=== PATIENT | female | born 1955 | race Caucasian/White ===

== ENCOUNTER 2017-10-02 19:01 | Emergency (ER) | payer MEDICARE, BC ==
[2017-10-02 20:13] VITALS: PULSE 84
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
[2017-10-02 20:44] LABS: Appearance CLEAR (CLEAR); Bilirubin NEGATIVE (NEGATIVE); Blood TRACE NON-HEM Ery/ul (0-5); Glucose NEGATIVE (NEGATIVE); Ketones NEGATIVE (NEGATIVE); Leukocyte Esterase NEGATIVE (NEGATIVE); Nitrite NEGATIVE (NEGATIVE); Protein,Urine Dip NEGATIVE (Negative); Specific Gravity 1.005 (1.005-1.025); Urobilinogen NORMAL mg/dL (0-1)
[2017-10-02 20:45] LABS: Bacteria RARE /HPF (NEGATIVE)
[2017-10-02] MEDS ORDERED: Macrobid 100MG Capsule PO ONE (20:57)
[2017-10-02] MEDS ORDERED: Macrobid 100MG Capsule ONE (21:04)
[2017-10-02 21:15] VITALS: BP 139/90; O2SAT 97
== END 2017-10-02 21:15 | disposition home or self-care (01) ==
LOC: ED 19:01
DX: R30.0 Dysuria (principal); R35.8 Other polyuria; R10.9 Unspecified abdominal pain; Z79.899 Other long term (current) drug therapy; E11.9 Type 2 diabetes mellitus without complications
CPT/HCPCS: 81000; 81002; 99283; A9270-GY

== ENCOUNTER 2019-03-07 08:09 | Day surgery (SDC) | payer MEDICARE, BC ==
[~2019-03-07 08:09] MED LIST: DIPRIVAN 200 MG/20 ML IV ONE
[2019-03-07] MEDS ORDERED: Ketamine HCl 50 MG/ML ONE (08:14)
[2019-03-07] MEDS ORDERED: Lactated Ringers 1,000 ML IV SCH (08:30)
[2019-03-07] MEDS ORDERED: Lactated Ringers 1,000 ML IV ONE (08:34)
--- NOTE | 2019-03-07 08:34 | HP ---
DATE OF SURGERY: 03/07/2019 HISTORY OF PRESENT ILLNESS: The patient is a 64 year-old with some chest pain. 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 She has been on some Nexium. She is in need of upper endoscopy to evaluate for gastritis, peptic ulcer disease, esophagitis or other etiology. PAST MEDICAL HISTORY: Diabetes, hyperlipidemia, hypertension. She has asthma, reflux, history of some back pain in the past. PAST SURGICAL HISTORY: Appendectomy, tonsillectomy, colonoscopy, cholecystectomy, hysterectomy, cystocele and rectocele repair in the past. MEDICATIONS: Albuterol, azelastine, diltiazem, Enalapril, omeprazole, fish oil, hydrochlorothiazide, levocetirizine, magnesium oxide, Metformin, nitroglycerin PRN, rosuvastatin, Symbicort, vitamin D3. ALLERGIES: BACTRIM. CODEINE. IODINE CAUSES HIVES. FAMILY HISTORY: CVA, myocardial infarction, chronic renal failure. History of pulmonary embolus in the past in the father. SOCIAL HISTORY: No smoking. No alcohol abuse. REVIEW OF SYSTEMS: Fourteen systems reviewed per admission assessment. No shortness of breath. No palpitation. She did have chest pain. It was felt not to be cardiac in origin as well as odynophagia and reflux. No other shortness of breath or palpitations. Other systems negative or noncontributory as above and per preadmission questionnaire. PHYSICAL EXAMINATION: GENERAL: No acute distress. HEENT: Sclerae nonicteric. NECK: No JVD. CHEST: Equal excursion, nonlabored breathing. CVS: Regular rate and rhythm. ABDOMEN: Soft. No peritoneal signs. EXTREMITIES: No significant edema. NEURO: Alert, oriented, moving extremities symmetrically. No gross motor deficits noted. IMPRESSION: Odynophagia, reflux unclear etiology, is in need of upper endoscopy to evaluate for gastritis, peptic ulcer disease, esophagitis or other etiology. Risks and benefits explained in detail including but not limited to bleeding or infection, risk of bowel injury or perforation possibly requiring open procedure, risk of missed or nondiagnosis or incomplete exam possibly requiring barium swallow, other studies or procedures. General risk of anesthesia or sedation. Risk of bleeding or infection, risk of sedation but not limited to, risk of inability to diagnose the etiology of her symptoms possibly requiring other work up or studies. She understands and agrees to the planned procedure and will proceed with outpatient EGD with possible biopsy.
[2019-03-07 11:32] VITALS: BP 152/81; PULSE 73; O2SAT 100
--- NOTE | 2019-03-07 15:30 | OP ---
SURGERY DATE/TIME: 03/07/2019 1032 PREOPERATIVE DIAGNOSES: 1) Odynophagia. 2) Epigastric pain, need for upper endoscopy. POSTOPERATIVE DIAGNOSES: 1) Mild gastritis. 2) Small gastric polyp. 3) Question gastroparesis. PROCEDURES: 1) EGD with cold biopsy of small bowel to evaluate for celiac sprue. 2) Cold biopsy of the antrum to evaluate for Helicobacter pylori. 3) Cold biopsy esophagus to evaluate for eosinophilic esophagitis. 4) Cold biopsy removal of small benign appearing gastric polyp in the fundus. SURGEON: Dr. Kiran Vale. ANESTHESIA: MAC. ESTIMATED BLOOD LOSS: Minimal. INDICATIONS: As noted above. Risks and benefits explained in detail and not limited to and consent obtained. DESCRIPTION OF PROCEDURE AND FINDINGS: The patient is taken to the operating room. MAC anesthesia introduced. After official time out and no disagreement with planned procedure, a bite block positioned. Video gastroscope easily passed down the esophagus through the patent pylorus to the junction of the second and third portion of the duodenum. Given her symptom complaints, cold biopsy taken of small bowel to evaluate for celiac sprue. Cold biopsy taken. She had some minimal to mild gastritis. Cold biopsy taken in the antrum to evaluate for Helicobacter pylori. On retroflex there were no signs of any large hiatal hernia. The gastroesophageal junction fairly snug against the scope. There was a small fundal polyp that was removed with cold biopsy forceps. Good hemostasis noted. Scope pulled back up through the esophagus, gastroesophageal junction appeared to be fairly crisp. No sign of Luna's or erosions and some random cold biopsies taken of the esophagus to evaluate for eosinophilic esophagitis. Gastroesophageal junction was around 40 cm. There were no signs of any obvious masses or other mucosal lesions on withdrawal of the scope. The patient tolerated the procedure well. There were no immediate complications. It should be noted she did have moderate amount of food particles in the stomach, question some gastroparesis. The patient tolerated the procedure well. There were no immediate complications. Findings discussed with the family out in the waiting area.
== END 2019-03-07 11:46 | disposition home or self-care (01) ==
LOC: SDC 08:09
PROVIDERS: ATTEND Surgery
DX: R13.10 Dysphagia, unspecified (principal); R10.13 Epigastric pain; K29.70 Gastritis, unspecified, without bleeding; K31.7 Polyp of stomach and duodenum; E11.9 Type 2 diabetes mellitus without complications; E78.5 Hyperlipidemia, unspecified; I10 Essential (primary) hypertension; Z79.899 Other long term (current) drug therapy
CPT/HCPCS: 82962; 88305; J2704

== ENCOUNTER 2022-01-04 17:01 | Observation (INO) | payer MEDICARE, BC ==
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
[2022-01-04] MEDS ORDERED: Zofran 4 MG/2 ML VIAL IV ONE (19:33)
[2022-01-04] MEDS ORDERED: Pepcid 20 MG VIAL IV ONE ×2 (19:33→20:50)
[2022-01-04] MEDS ORDERED: GlucaGen 1 MG IM ONE (19:35)
[2022-01-04 19:51] LABS: Absolute Neutrophil Ct (ANC) 6.09 (1.4-6.9); Basophil (Absolute #) 0.04 (0-0.4); Eosinophil % 0.9 % (0.00-5.0); Eosinophil (Absolute #) 0.09 (0-0.5); Hematocrit 44.3 % (35-47); Hemoglobin 14.5 gm/dl (12.0-16.0); Lymphocyte (Absolute #) 2.88 (1.0-4.6); Lymphocytes % 29.6 % (24.0-44.0); Mean Cell Volume 93.1 fl (78-100); Mean Corpuscular Hemoglobin 30.5 pg (26-32); Mean Corpuscular Hgb Concent. 32.7 g/dl (32-36); Mean Platelet Volume 9.3 fl (7.5-11.0); Monocyte (Absolute #) 0.62 (0.0-1.3); Monocytes % 6.4 % (0.0-12.0); Neutrophil % 62.7 % (36.0-66.0); Platelet Count 305 K/mm3 (150-450); Red Blood Count 4.76 M/mm3 (4.1-5.4); White Blood Count 9.7 K/mm3 (4.0-10.5)
[2022-01-04 20:10] LABS: ALBUMIN 4.7 g/dL (3.5-5.0); ALKALINE PHOSPHATASE 69 U/L (38-126); AMYLASE 65 U/L (30-110); ANION GAP 14.1 MEQ/L (5-15); BLOOD UREA NITROGEN 17 mg/dL (7-17); CHLORIDE 104 mmol/L (98-107); Calcium 10.5 mg/dL (8.4-10.2); Carbon Dioxide 27 mmol/L (22-30); Creatinine 1 0.66 mg/dL (0.52-1.04); EST GLOMERULAR FILTRATION RATE > 60.0 ML/MIN; Glucose 101 mg/dL (74-106); LIPASE 60 U/L (23-300); Potassium 4.2 mmol/L (3.5-5.1); SGOT/AST 40 U/L (14-36); SGPT/ALT 30 U/L (0-35); SODIUM 141 mmol/L (137-145); Total Protein 7.8 g/dL (6.3-8.2)
[2022-01-04] MEDS ORDERED: Zofran 4 MG/2 ML VIAL ONE (20:50)
[2022-01-04] MEDS ORDERED: GlucaGen 1 MG ONE (20:51)
[2022-01-04 20:53] LABS: Epithelial Cells RARE /HPF (FEW); Mucus SLIGHT /HPF (NEGATIVE); WBC 0-2 /HPF (0-5)
[2022-01-04] MEDS: Sodium Chloride 0.9% 1000 ML 1,000 ML IV SCH (20:53)
[2022-01-04 20:56] LABS: Appearance CLEAR (CLEAR); Bilirubin NEGATIVE (NEGATIVE); Glucose NEGATIVE (NEGATIVE); Ketones SMALL-15 (NEGATIVE); Nitrite NEGATIVE (NEGATIVE); Ph 5.5 (5-6); Protein,Urine Dip 100 (Negative); RBC SMALL Ery/ul (0-5); Specific Gravity >=1.030 (1.005-1.025); Urine Cultured Indicated? YES; Urobilinogen 0.2 mg/dL (0-1)
[2022-01-04 21:10] LABS: Dipstick done @ ? MAIN LAB
[2022-01-05] MEDS ORDERED: Zofran 4 MG/2 ML VIAL IV PRN (00:17)
[2022-01-05] MEDS ORDERED: MAALOX ES 30 ML UNIT DOSE PO PRN (00:17)
[2022-01-05] MEDS ORDERED: Hydromorphone 1 mg/ml Injection IV PRN (00:17)
[2022-01-05] MEDS ORDERED: HUMULIN R SQ PRN (00:17)
[2022-01-05] MEDS: Sodium Chloride 0.9% 1000 ML 1,000 ML IV SCH ×2 (00:51→10:43)
[2022-01-05 06:27] LABS: Basophil (Absolute #) 0.03 (0-0.4); Eosinophil % 1.2 % (0.00-5.0); Hematocrit 42.7 % (35-47); Hemoglobin 13.8 gm/dl (12.0-16.0); Lymphocyte (Absolute #) 2.47 (1.0-4.6); Lymphocytes % 30.4 % (24.0-44.0); Mean Cell Volume 93.6 fl (78-100); Mean Corpuscular Hemoglobin 30.3 pg (26-32); Mean Corpuscular Hgb Concent. 32.3 g/dl (32-36); Mean Platelet Volume 9.6 fl (7.5-11.0); Monocyte (Absolute #) 0.52 (0.0-1.3); Monocytes % 6.4 % (0.0-12.0); Neutrophil % 61.6 % (36.0-66.0); Platelet Count 310 K/mm3 (150-450); Red Blood Count 4.56 M/mm3 (4.1-5.4); White Blood Count 8.1 K/mm3 (4.0-10.5)
[2022-01-05 06:39] LABS: ALKALINE PHOSPHATASE 61 U/L (38-126); ANION GAP 14.4 MEQ/L (5-15); BLOOD UREA NITROGEN 13 mg/dL (7-17); CHLORIDE 107 mmol/L (98-107); Calcium 9.2 mg/dL (8.4-10.2); Carbon Dioxide 23 mmol/L (22-30); Creatinine 1 0.52 mg/dL (0.52-1.04); EST GLOMERULAR FILTRATION RATE > 60.0 ML/MIN; Glucose 83 mg/dL (74-106); Potassium 4.4 mmol/L (3.5-5.1); SGOT/AST 32 U/L (14-36); SGPT/ALT 27 U/L (0-35); SODIUM 140 mmol/L (137-145); Total Protein 6.3 g/dL (6.3-8.2)
[2022-01-05] MEDS ORDERED: TYLENOL 325 MG PO PRN (06:48)
[2022-01-05] MEDS ORDERED: PATIENT OWN MEDICATION IH SCH (07:00)
--- NOTE | 2022-01-05 07:28 | XRAY ---
Indication: "Trouble swallowing. Epigastric pain and burning." Multiple contiguous axial images obtained through the chest without contrast. Comparison: None Heart not enlarged. Aorta normal in course and caliber. Small mediastinal and tiny right hilar calcified nodes. No pathologic mediastinal lymphadenopathy. Small hiatal hernia. Lungs demonstrates minimal bibasilar fibrosis/scarring. No suspicious pulmonary mass, infiltrate, effusion, or pneumothorax. Bony thorax intact with minimal degenerative changes throughout the spine. Limited upper abdomen demonstrates tiny hepatic/splenic calcified granulomas and cholecystectomy clips. Impression: Small hiatal hernia and old granulomatous disease. No acute cardiopulmonary abnormalities. Comment: Preliminary interpretation made by [facility]. No critical discrepancy.
[2022-01-05] MEDS ORDERED: PROTONIX 40 MG IV IV SCH (10:00)
[2022-01-05] MEDS ORDERED: Pepcid 20 MG VIAL IV SCH (10:00)
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
[2022-01-05] MEDS ORDERED: Ventolin Hfa MDI IH PRN (11:34)
[2022-01-05] MEDS ORDERED: VENTOLIN COMMON CANISTER IH PRN (11:36)
[2022-01-05 12:10] VITALS: BP 148/70; PULSE 82; O2SAT 94
--- NOTE | 2022-01-05 14:48 | PCM.DS ---
Discharge Summary Date of Admission: 01/05/22 00:10 Admitting Physician: NISHANT MABRY Primary Care Provider: GREG CHRISTINA Allergies Allergies iodine Allergy (Verified 01/04/22 17:56) Hives sulfamethoxazole [From Bactrim] Allergy (Verified 01/04/22 17:56) Rash trimethoprim [From Bactrim] Allergy (Verified 01/04/22 17:56) Rash Hospital Summary - Hospital Course Hospital Course: Chief Complaint Diagnosis inability to take fluids; esophagitis; Allergies Allergy/AdvReac Type Severity Reaction Status Date / Time iodine Allergy Hives Verified 01/04/22 17:56 sulfamethoxazole Allergy Rash Verified 01/04/22 17:56 [From Bactrim] trimethoprim [From Bactrim] Allergy Rash Verified 01/04/22 17:56 Vital Signs (Last 24 hours) Temp Pulse Resp BP Pulse Ox 01/05/22 12:00 98.3 F 82 16 148/70 94 L 01/05/22 07:41 98.6 F 89 16 154/86 98 01/05/22 07:40 84 16 95 01/05/22 04:00 98.7 F 81 16 132/66 96 01/05/22 01:12 74 16 96 01/05/22 01:04 98.4 F 75 16 141/67 98 01/04/22 23:00 79 171/94 96 01/04/22 22:27 64 18 73/44 98 01/04/22 22:08 96 01/04/22 21:08 88 18 168/80 98 01/04/22 19:05 96 H 18 178/96 96 01/04/22 18:04 90 18 153/88 95 01/04/22 17:45 97 F 93 H 18 170/97 96 Home Medications Medication Instructions Recorded Confirmed Last Taken Type Aspirin 81 mg PO HS 01/05/22 01/04/22 Unknown History Famotidine 20 mg [Pepcid 20 20 mg PO BID #60 tablet 01/05/22 Unknown Rx MG] PANTOPRAZOLE 40 mg Tablet 40 mg PO QAM 30 Days #30 tab 01/05/22 Unknown Rx [Protonix 40MG Tablet] Rosuvastatin Calcium 20 mg PO HS 01/05/22 01/05/22 Unknown History Current Medications Generic Name Dose Route Start Last Admin Trade Name Freq PRN Reason Stop Dose Admin Acetaminophen 650 mg 01/05/22 06:48 01/05/22 06:51 Acetaminophen 325 Mg Tablet PO 02/04/22 06:47 650 mg Q6H PRN PRN Administration PAIN AND/OR FEVER Al Hydrox/Mg Hydrox/Simethicone 30 ml 01/05/22 00:17 Mag Hydrox/Al Hydrox/Simeth 30 Ml Udcup PO 02/04/22 00:16 Q2H PRN PRN INDIGESTION Albuterol Sulfate 2 puff 01/05/22 11:36 Albuterol Common Canister Inhaler IH 02/04/22 11:35 Q6H PRN PRN SHORTNESS OF BREATH Aspirin 81 mg 01/05/22 22:00 Aspirin 81 Mg Tablet.Ec PO 02/04/22 21:59 HS [facility] Diltiazem HCl 120 mg 01/05/22 20:00 Diltiazem Hcl 120 Mg Cap.Sr.24h PO 02/04/22 19:59 DAILY@2000 [facility] Enalapril Maleate 20 mg 01/06/22 10:00 Enalapril Maleate 10 Mg 10 Mg Tablet PO 02/05/22 09:59 DAILY [facility] Famotidine 20 mg 01/05/22 10:00 01/05/22 09:11 Famotidine 20 Mg/1 Vial IV 02/04/22 09:59 20 mg Q12HT MAEGAN Administration Hydromorphone HCl 1 mg 01/05/22 00:17 Hydromorphone 1 Mg/1ml Inj 1 Mg/Ml Syringe IV 01/10/22 00:16 Q4H PRN PRN PAIN Sodium Chloride 1,000 mls @ 100 mls/hr 01/04/22 19:45 01/05/22 10:43 Sodium Chloride 0.9% 1000 Ml IV 02/03/22 19:44 100 mls/hr .Q10H MAEGAN Administration Insulin Human Regular 0 unit 01/05/22 00:17 Insulin Regular, Human 1 Unit SQ 02/04/22 00:16 UD PRN HYPERGLYCEMIA Magnesium Oxide 400 mg 01/05/22 22:00 Magnesium Oxide 400 Mg Tablet PO 02/04/22 21:59 HS [facility] Metformin HCl 500 mg 01/05/22 17:00 Metformin Hcl 500 Mg Tablet PO 02/04/22 16:59 BIDWM [facility] Ondansetron HCl 4 mg 01/05/22 00:17 Ondansetron Hcl 4 Mg/2 Ml Vial IV 02/04/22 00:16 Q6H PRN PRN NAUSEA/VOMITING Pantoprazole Sodium 40 mg 01/05/22 10:00 01/05/22 09:11 Pantoprazole 40 Mg Vial IV 02/04/22 09:59 40 mg Q24H10 [facility]EGAN Administration Patient Own Med : 1 each 01/05/22 07:00 01/05/22 07:40 Symbicort 160/4.5 IH 02/04/22 06:59 1 each BIDRT MAEGAN Administration Simvastatin 40 mg 01/05/22 22:00 Simvastatin 20 Mg Tablet PO 02/04/22 21:59 HS [facility] Discontinued Medications Generic Name Dose Route Start Last Admin Trade Name Freq PRN Reason Stop Dose Admin Famotidine 20 mg 01/04/22 19:33 01/04/22 20:52 Famotidine 20 Mg/1 Vial IV 01/04/22 19:34 20 mg STAT ONE Administration Famotidine Confirm 01/04/22 20:50 Famotidine 20 Mg/1 Vial Administered 01/04/22 20:51 Dose 20 mg IV .STK-MED ONE Glucagon 1 mg 01/04/22 19:35 01/04/22 20:52 Glucagon 1 Mg/Vial Vial IM 01/04/22 19:36 1 mg STAT ONE Administration Glucagon Confirm 01/04/22 20:51 Glucagon 1 Mg/Vial Vial Administered 01/04/22 20:52 Dose 1 mg .ROUTE .STK-MED ONE Ondansetron HCl 4 mg 01/04/22 19:33 01/04/22 20:53 Ondansetron Hcl 4 Mg/2 Ml Vial IV 01/04/22 19:34 4 mg STAT ONE Administration Ondansetron HCl Confirm 01/04/22 20:50 Ondansetron Hcl 4 Mg/2 Ml Vial Administered 01/04/22 20:51 Dose 4 mg .ROUTE .STK-MED ONE Intake & Output (Last 24 hours) 01/03/22 01/04/22 01/05/22 01/06/22 11:59 11:59 11:59 11:59 Intake Total 240 Balance 240 Weight 95.3 kg Microbiology Results (Last 24 hours) 01/04/22 Unknown Clean Catch Midstream Urine Culture - Pending Laboratory Results (Last 24 hours) 01/05/22 01/05/22 01/05/22 06:04 06:00 06:00 WBC 8.1 RBC 4.56 Hgb 13.8 Hct 42.7 MCV 93.6 MCH 30.3 MCHC 32.3 RDW 15.0 H Plt Count 310 MPV 9.6 Gran % 61.6 Eos # (Auto) 0.10 Absolute Lymphs (auto) 2.47 Absolute Monos (auto) 0.52 Lymphocytes % 30.4 Monocytes % 6.4 Eosinophils % 1.2 Basophils % 0.4 Absolute Granulocytes 5.00 Basophils # 0.03 Sodium 140 Potassium 4.4 Chloride 107 Carbon Dioxide 23 Anion Gap 14.4 BUN 13 Creatinine 0.52 Estimated GFR > 60.0 Glucose 83 Lactic Acid 0.5 Calcium 9.2 Total Bilirubin 0.60 AST 32 ALT 27 Alkaline Phosphatase 61 Troponin I Serum Total Protein 6.3 Albumin 4.0 Amylase Lipase Urinalys Dipstick Clnc Urine Color Urine Appearance Urine pH Ur Specific Gardners POC Urine Protein Conf Urine Ketones Urine Nitrite Urine Bilirubin Urine Urobilinogen Urine Leukocytes Urine WBC (Auto) Urine RBC (Auto) U Hyaline Cast (Auto) U Epithel Cells (Auto) Urine RBC Urine Mucus (Auto) Ur Culture Indicated? Urine Glucose Group A Strep Antibody 01/04/22 01/04/22 01/04/22 Unknown 22:50 20:00 WBC RBC Hgb Hct MCV MCH MCHC RDW Plt Count MPV Gran % Eos # (Auto) Absolute Lymphs (auto) Absolute Monos (auto) Lymphocytes % Monocytes % Eosinophils % Basophils % Absolute Granulocytes Basophils # Sodium Potassium Chloride Carbon Dioxide Anion Gap BUN Creatinine Estimated GFR Glucose Lactic Acid Calcium Total Bilirubin AST ALT Alkaline Phosphatase Troponin I < 0.012 < 0.012 Serum Total Protein Albumin Amylase Lipase Urinalys Dipstick Clnc MAIN LAB Urine Color YELLOW Urine Appearance CLEAR Urine pH 5.5 Ur Specific Gardners >=1.030 POC Urine Protein Conf 100 Urine Ketones SMALL-15 Urine Nitrite NEGATIVE Urine Bilirubin NEGATIVE Urine Urobilinogen 0.2 Urine Leukocytes NEGATIVE Urine WBC (Auto) 0-2 Urine RBC (Auto) 3-5 U Hyaline Cast (Auto) 3-5 U Epithel Cells (Auto) RARE Urine RBC SMALL Urine Mucus (Auto) SLIGHT Ur Culture Indicated? YES Urine Glucose NEGATIVE Group A Strep Antibody 04/01/04/22 01/04/22 19:45 19:45 19:33 WBC 9.7 RBC 4.76 Hgb 14.5 Hct 44.3 MCV 93.1 MCH 30.5 MCHC 32.7 RDW 15.0 H Plt Count 305 MPV 9.3 Gran % 62.7 Eos # (Auto) 0.09 Absolute Lymphs (auto) 2.88 Absolute Monos (auto) 0.62 Lymphocytes % 29.6 Monocytes % 6.4 Eosinophils % 0.9 Basophils % 0.4 Absolute Granulocytes 6.09 Basophils # 0.04 Sodium 141 Potassium 4.2 Chloride 104 Carbon Dioxide 27 Anion Gap 14.1 BUN 17 Creatinine 0.66 Estimated GFR > 60.0 Glucose 101 Lactic Acid 0.6 Calcium 10.5 H Total Bilirubin 0.60 AST 40 H ALT 30 Alkaline Phosphatase 69 Troponin I Serum Total Protein 7.8 Albumin 4.7 Amylase 65 Lipase 60 Urinalys Dipstick Clnc Urine Color Urine Appearance Urine pH Ur Specific Gard[place] POC Urine Protein Conf Urine Ketones Urine Nitrite Urine Bilirubin Urine Urobilinogen Urine Leukocytes Urine WBC (Auto) Urine RBC (Auto) U Hyaline Cast (Auto) U Epithel Cells (Auto) Urine RBC Urine Mucus (Auto) Ur Culture Indicated? Urine Glucose Group A Strep Antibody 01/04/22 18:00 WBC RBC Hgb Hct MCV MCH MCHC RDW Plt Count MPV Gran % Eos # (Auto) Absolute Lymphs (auto) Absolute Monos (auto) Lymphocytes % Monocytes % Eosinophils % Basophils % Absolute Granulocytes Basophils # Sodium Potassium Chloride Carbon Dioxide Anion Gap BUN Creatinine Estimated GFR Glucose Lactic Acid Calcium Total Bilirubin AST ALT Alkaline Phosphatase Troponin I Serum Total Protein Albumin Amylase Lipase Urinalys Dipstick Clnc Urine Color Urine Appearance Urine pH Ur Specific Gardners POC Urine Protein Conf Urine Ketones Urine Nitrite Urine Bilirubin Urine Urobilinogen Urine Leukocytes Urine WBC (Auto) Urine RBC (Auto) U Hyaline Cast (Auto) U Epithel Cells (Auto) Urine RBC Urine Mucus (Auto) Ur Culture Indicated? Urine Glucose Group A Strep Antibody NOT DETECTED Orders (Last 24 hours) Category Date Time Status Up With Assistance ROUTINE Activity 01/05/22 00:17 Active Code Status Order ROUTINE Care 01/05/22 00:17 Active EKG-ER Only STAT Care 01/04/22 19:33 Completed Fall Protocol Q1H Care 01/05/22 00:17 Active IV Care Q6H Care 01/05/22 00:17 Active IV Insertion STAT Care 01/04/22 19:33 Completed Isolation, Initiate & Maintain Q12H Care 01/05/22 00:10 Active POCT Glucose Check ACHS Care 01/05/22 00:[address] in Observation ROUTINE Care 01/05/22 00:17 Active [facility] PersaudWinnie ROUTINE Care 01/05/22 00:17 Active Telemetry q6h Care 01/05/22 00:17 Active Vital Signs Q4H Care 01/05/22 00:17 Active Weight,Daily 0600 Care 01/05/22 00:17 Active Clear Liquid Diet 01/05/22 Breakfast Completed Soft Diet Diet 01/05/22 Lunch Active Discharge Routine Discharge 01/05/22 13:17 Ordered CHEST WITHOUT CONTRAST [CT] Stat Exams 01/04/22 19:34 Completed AMYLASE Stat Lab 01/04/22 19:45 Completed CBC W DIFF AM.LAB Lab 01/05/22 06:00 Completed CBC W DIFF Stat Lab 01/04/22 19:45 Completed CMP AM.LAB Lab 01/05/22 06:00 Completed CMP Stat Lab 01/04/22 19:45 Completed LIPASE Stat Lab 01/04/22 19:45 Completed Lactic Acid AM.LAB Lab 01/05/22 06:04 Completed Lactic Acid Stat Lab 01/04/22 19:33 Completed Strep Swab [Group A Strep] Stat Lab 01/04/22 18:00 Completed TROPONIN Q3H Lab 01/04/22 20:00 Completed TROPONIN Q3H Lab 01/04/22 22:50 Completed Acetaminophen 325 mg [Tylenol 325 mg] Med 01/05/22 06:48 Active 650 mg PO Q6H PRN PRN Albuterol Common Canister [Ventolin Common Canister* Med 01/05/22 11:36 Active ] 2 puff IH Q6H PRN PRN Aspirin EC 81 mg [Ecotrin 81 mg] Med 01/05/22 22:00 Active 81 mg PO HS Diltiazem HCl 120 mg [Cardizem CD 120 MG] Med 01/05/22 20:00 Active 120 mg PO DAILY@2000 Enalapril Maleate 10 mg [Vasotec 10 MG] Med 01/06/22 10:00 Active 20 mg PO DAILY Famotidine 20 mg Vial [Pepcid 20 MG VIAL] Med 01/04/22 20:50 Discontinued 20 mg IV .STK-MED ONE Famotidine 20 mg Vial [Pepcid 20 MG VIAL] Med 01/05/22 10:00 Active 20 mg IV Q12HT Famotidine 20 mg Vial [Pepcid 20 MG VIAL] Med 01/04/22 19:33 Discontinued 20 mg IV STAT ONE Glucagon 1 mg [GlucaGen 1 MG] Med 01/04/22 20:51 Discontinued 1 mg .ROUTE .STK-MED ONE Glucagon 1 mg [GlucaGen 1 MG] Med 01/04/22 19:35 Discontinued 1 mg IM STAT ONE Hydromorphone 1 mg/1Ml Inj [Hydromorphone 1 mg/ml Med 01/05/22 00:17 Active Injection] 1 mg IV Q4H PRN PRN Insulin Regular, Human [Humulin R] Med 01/05/22 00:17 Active See Dose Instructions SQ UD PRN Mag Hydrox/Al Hydrox/Simeth [Maalox Es 30 ml Unit Med 01/05/22 00:17 Active Dose] 30 ml PO Q2H PRN PRN Magnesium Oxide 400 mg [Mag-Ox 400] Med 01/05/22 22:00 Active 400 mg PO HS Metformin HCl 500 mg [Glucophage 500 MG] Med 01/05/22 17:00 Active 500 mg PO BIDWM NaCl 0.9% 1000 ml [Sodium Chloride 0.9% 1000 ML] 1,000 Med 01/04/22 19:45 Active ml IV 100 mls/hr Ondansetron HCl 4 mg/2 ml [Zofran 4 MG/2 ML VIAL] Med 01/04/22 20:50 Discontinued 4 mg .ROUTE .STK-MED ONE Ondansetron HCl 4 mg/2 ml [Zofran 4 MG/2 ML VIAL] Med 01/05/22 00:17 Active 4 mg IV Q6H PRN PRN Ondansetron HCl 4 mg/2 ml [Zofran 4 MG/2 ML VIAL] Med 01/04/22 19:33 Discontinued 4 mg IV STAT ONE Pantoprazole 40 mg [Protonix 40 mg IV] Med 01/05/22 10:00 Active 40 mg IV Q24H10 Patient Own Med [Patient Own Medication] Med 01/05/22 07:00 Active 1 each IH BIDRT Simvastatin 20Mg [Zocor 20Mg] Med 01/05/22 22:00 Active 40 mg PO HS Pulse Oximetry .spot check RT 01/05/22 01:12 Active Respiratory MDI BID RT 01/05/22 07:00 Active Respiratory Therapy Assessment DAILY RT 01/05/22 01:12 Active Patient Care Notes (Last 24 hours) 01/05/22 12:22 Nursing Note by Christina Dyer States ate [id number] with no problems. Cont to drink fluids with no difficulty. Initialized on 01/05/22 12:22 - END OF NOTE 01/05/22 11:30 Nursing Note by Christina Dyer Pt requested more to eat. Order obtained for soft diet and pt eating mac and cheese now. Will f/u to see how tolerates. Home med list approved via Dr Mabry and pt informed will be bringing AM meds. Pt states had already taken home meds from her home pill box. Explained importance of only taking meds as provided by hospital pharmacy or approved via hospital pharmacy. Pt verbalized understanding. Initialized on 01/05/22 11:30 - END OF NOTE 01/05/22 08:53 Nursing Note by Christina Dyer Dean liq diet without difficulty. States still has "full" feeling upper abd but liq wnt down without prob. States had been on Nexium in past, but none lately. Was DC'd. No other c/o voiced. Verbalized wants to go home this AM. Initialized on 01/05/22 08:53 - END OF NOTE 01/05/22 06:56 Nursing Note by Rena Watson Pt able to drink water and take Tylenol this am. States that her throat/esophagus is feeling better today. Initialized on 01/05/22 06:56 - END OF NOTE doing better. Will discharge home with protonix and pepcid.Follow up with her family physician for further workup - Vitals & Intake/Output Vital Signs: Vital Signs Temperature 98.3 F 01/05/22 12:00 Pulse Rate 82 01/05/22 12:00 Respiratory Rate 16 01/05/22 12:00 Blood Pressure 148/70 01/05/22 12:00 O2 Sat by Pulse Oximetry 94 L 01/05/22 12:00 Intake & Output: Intake & Output 01/03/22 01/04/22 01/05/22 01/06/22 11:59 11:59 11:59 11:59 Intake Total 240 Balance 240 Weight 95.3 kg - Lab Result Diagrams: 01/05/22 06:00 01/05/22 06:00 Lab Results-Last 24 Hrs: Lab Results-Last 24 Hours 01/04/22 01/04/22 01/04/22 Range/Units 18:00 19:33 19:45 WBC 9.7 (4.0-10.5) K/mm3 RBC 4.76 (4.1-5.4) M/mm3 Hgb 14.5 (12.0-16.0) gm/dl Hct 44.3 (35-47) % MCV 93.1 (78-100) fl MCH 30.5 (26-32) pg MCHC 32.7 (32-36) g/dl RDW 15.0 H (11.5-14.0) % Plt Count 305 (150-450) K/mm3 MPV 9.3 (7.5-11.0) fl Gran % 62.7 (36.0-66.0) % Eos # (Auto) 0.09 (0-0.5) Absolute Lymphs (auto) 2.88 (1.0-4.6) Absolute Monos (auto) 0.62 (0.0-1.3) Lymphocytes % 29.6 (24.0-44.0) % Monocytes % 6.4 (0.0-12.0) % Eosinophils % 0.9 (0.00-5.0) % Basophils % 0.4 (0.0-0.4) % Absolute Granulocytes 6.09 (1.4-6.9) Basophils # 0.04 (0-0.4) Sodium (137-145) mmol/L Potassium (3.5-5.1) mmol/L Chloride (98-107) mmol/L Carbon Dioxide (22-30) mmol/L Anion Gap (5-15) MEQ/L BUN (7-17) mg/dL Creatinine (0.52-1.04) mg/dL Estimated GFR ML/MIN Glucose (74-106) mg/dL Lactic Acid 0.6 (0.4-2.0) Calcium (8.4-10.2) mg/dL Total Bilirubin (0.2-1.3) mg/dL AST (14-36) U/L ALT (0-35) U/L Alkaline Phosphatase (38-126) U/L Troponin I (0.000-0.034) ng/mL Serum Total Protein (6.3-8.2) g/dL Albumin (3.5-5.0) g/dL Amylase (30-110) U/L Lipase (23-300) U/L Urinalys Dipstick Clnc Urine Color (YELLOW) Urine Appearance (CLEAR) Urine pH (5-6) Ur Specific Gardners (1.005-1.025) POC Urine Protein Conf (Negative) Urine Ketones (NEGATIVE) Urine Nitrite (NEGATIVE) Urine Bilirubin (NEGATIVE) Urine Urobilinogen (0-1) mg/dL Urine Leukocytes (NEGATIVE) Urine WBC (Auto) (0-5) /HPF Urine RBC (Auto) (0-2) /HPF U Hyaline Cast (Auto) (0-2) /LPF U Epithel Cells (Auto) (FEW) /HPF Urine RBC (0-5) Ray/ul Urine Mucus (Auto) (NEGATIVE) /HPF Ur Culture Indicated? Urine Glucose (NEGATIVE) mg/dL Group A Strep Antibody NOT DETECTED (NEGATIVE) 01/04/22 01/04/22 01/04/22 Range/Units 19:45 20:00 22:50 WBC (4.0-10.5) K/mm3 RBC (4.1-5.4) M/mm3 Hgb (12.0-16.0) gm/dl Hct (35-47) % MCV (78-100) fl MCH (26-32) pg MCHC (32-36) g/dl RDW (11.5-14.0) % Plt Count (150-450) K/mm3 MPV (7.5-11.0) fl Gran % (36.0-66.0) % Eos # (Auto) (0-0.5) Absolute Lymphs (auto) (1.0-4.6) Absolute Monos (auto) (0.0-1.3) Lymphocytes % (24.0-44.0) % Monocytes % (0.0-12.0) % Eosinophils % (0.00-5.0) % Basophils % (0.0-0.4) % Absolute Granulocytes (1.4-6.9) Basophils # (0-0.4) Sodium 141 (137-145) mmol/L Potassium 4.2 (3.5-5.1) mmol/L Chloride 104 (98-107) mmol/L Carbon Dioxide 27 (22-30) mmol/L Anion Gap 14.1 (5-15) MEQ/L BUN 17 (7-17) mg/dL Creatinine 0.66 (0.52-1.04) mg/dL Estimated GFR > 60.0 ML/MIN Glucose 101 (74-106) mg/dL Lactic Acid (0.4-2.0) Calcium 10.5 H (8.4-10.2) mg/dL Total Bilirubin 0.60 (0.2-1.3) mg/dL AST 40 H (14-36) U/L ALT 30 (0-35) U/L Alkaline Phosphatase 69 (38-126) U/L Troponin I < 0.012 < 0.012 (0.000-0.034) ng/mL Serum Total Protein 7.8 (6.3-8.2) g/dL Albumin 4.7 (3.5-5.0) g/dL Amylase 65 (30-110) U/L Lipase 60 (23-300) U/L Urinalys Dipstick Clnc Urine Color (YELLOW) Urine Appearance (CLEAR) Urine pH (5-6) Ur Specific Gardners (1.005-1.025) POC Urine Protein Conf (Negative) Urine Ketones (NEGATIVE) Urine Nitrite (NEGATIVE) Urine Bilirubin (NEGATIVE) Urine Urobilinogen (0-1) mg/dL Urine Leukocytes (NEGATIVE) Urine WBC (Auto) (0-5) /HPF Urine RBC (Auto) (0-2) /HPF U Hyaline Cast (Auto) (0-2) /LPF U Epithel Cells (Auto) (FEW) /HPF Urine RBC (0-5) Ray/ul Urine Mucus (Auto) (NEGATIVE) /HPF Ur Culture Indicated? Urine Glucose (NEGATIVE) mg/dL Group A Strep Antibody (NEGATIVE) 01/04/22 01/05/22 01/05/22 Range/Units Unknown 06:00 06:00 WBC 8.1 (4.0-10.5) K/mm3 RBC 4.56 (4.1-5.4) M/mm3 Hgb 13.8 (12.0-16.0) gm/dl Hct 42.7 (35-47) % MCV 93.6 (78-100) fl MCH 30.3 (26-32) pg MCHC 32.3 (32-36) g/dl RDW 15.0 H (11.5-14.0) % Plt Count 310 (150-450) K/mm3 MPV 9.6 (7.5-11.0) fl Gran % 61.6 (36.0-66.0) % Eos # (Auto) 0.10 (0-0.5) Absolute Lymphs (auto) 2.47 (1.0-4.6) Absolute Monos (auto) 0.52 (0.0-1.3) Lymphocytes % 30.4 (24.0-44.0) % Monocytes % 6.4 (0.0-12.0) % Eosinophils % 1.2 (0.00-5.0) % Basophils % 0.4 (0.0-0.4) % Absolute Granulocytes 5.00 (1.4-6.9) Basophils # 0.03 (0-0.4) Sodium 140 (137-145) mmol/L Potassium 4.4 (3.5-5.1) mmol/L Chloride 107 (98-107) mmol/L Carbon Dioxide 23 (22-30) mmol/L Anion Gap 14.4 (5-15) MEQ/L BUN 13 (7-17) mg/dL Creatinine 0.52 (0.52-1.04) mg/dL Estimated GFR > 60.0 ML/MIN Glucose 83 (74-106) mg/dL Lactic Acid (0.4-2.0) Calcium 9.2 (8.4-10.2) mg/dL Total Bilirubin 0.60 (0.2-1.3) mg/dL AST 32 (14-36) U/L ALT 27 (0-35) U/L Alkaline Phosphatase 61 (38-126) U/L Troponin I (0.000-0.034) ng/mL Serum Total Protein 6.3 (6.3-8.2) g/dL Albumin 4.0 (3.5-5.0) g/dL Amylase (30-110) U/L Lipase (23-300) U/L Urinalys Dipstick Clnc MAIN LAB Urine Color YELLOW (YELLOW) Urine Appearance CLEAR (CLEAR) Urine pH 5.5 (5-6) Ur Specific Gardners >=1.030 (1.005-1.025) POC Urine Protein Conf 100 (Negative) Urine Ketones SMALL-15 (NEGATIVE) Urine Nitrite NEGATIVE (NEGATIVE) Urine Bilirubin NEGATIVE (NEGATIVE) Urine Urobilinogen 0.2 (0-1) mg/dL Urine Leukocytes NEGATIVE (NEGATIVE) Urine WBC (Auto) 0-2 (0-5) /HPF Urine RBC (Auto) 3-5 (0-2) /HPF U Hyaline Cast (Auto) 3-5 (0-2) /LPF U Epithel Cells (Auto) RARE (FEW) /HPF Urine RBC SMALL (0-5) Ray/ul Urine Mucus (Auto) SLIGHT (NEGATIVE) /HPF Ur Culture Indicated? YES Urine Glucose NEGATIVE (NEGATIVE) mg/dL Group A Strep Antibody (NEGATIVE) 01/05/22 Range/Units 06:04 WBC (4.0-10.5) K/mm3 RBC (4.1-5.4) M/mm3 Hgb (12.0-16.0) gm/dl Hct (35-47) % MCV (78-100) fl MCH (26-32) pg MCHC (32-36) g/dl RDW (11.5-14.0) % Plt Count (150-450) K/mm3 MPV (7.5-11.0) fl Gran % (36.0-66.0) % Eos # (Auto) (0-0.5) Absolute Lymphs (auto) (1.0-4.6) Absolute Monos (auto) (0.0-1.3) Lymphocytes % (24.0-44.0) % Monocytes % (0.0-12.0) % Eosinophils % (0.00-5.0) % Basophils % (0.0-0.4) % Absolute Granulocytes (1.4-6.9) Basophils # (0-0.4) Sodium (137-145) mmol/L Potassium (3.5-5.1) mmol/L Chloride (98-107) mmol/L Carbon Dioxide (22-30) mmol/L Anion Gap (5-15) MEQ/L BUN (7-17) mg/dL Creatinine (0.52-1.04) mg/dL Estimated GFR ML/MIN Glucose (74-106) mg/dL Lactic Acid 0.5 (0.4-2.0) Calcium (8.4-10.2) mg/dL Total Bilirubin (0.2-1.3) mg/dL AST (14-36) U/L ALT (0-35) U/L Alkaline Phosphatase (38-126) U/L Troponin I (0.000-0.034) ng/mL Serum Total Protein (6.3-8.2) g/dL Albumin (3.5-5.0) g/dL Amylase (30-110) U/L Lipase (23-300) U/L Urinalys Dipstick Clnc Urine Color (YELLOW) Urine Appearance (CLEAR) Urine pH (5-6) Ur Specific Gardners (1.005-1.025) POC Urine Protein Conf (Negative) Urine Ketones (NEGATIVE) Urine Nitrite (NEGATIVE) Urine Bilirubin (NEGATIVE) Urine Urobilinogen (0-1) mg/dL Urine Leukocytes (NEGATIVE) Urine WBC (Auto) (0-5) /HPF Urine RBC (Auto) (0-2) /HPF U Hyaline Cast (Auto) (0-2) /LPF U Epithel Cells (Auto) (FEW) /HPF Urine RBC (0-5) Ray/ul Urine Mucus (Auto) (NEGATIVE) /HPF Ur Culture Indicated? Urine Glucose (NEGATIVE) mg/dL Group A Strep Antibody (NEGATIVE) Micro Results-Entire Visit: Accuchecks Date 01/05/22 Time 07:51 - Radiology Exams Ordered Rad Exams-Entire Visit: Radiology Procedures Category Date Time Status CHEST WITHOUT CONTRAST [CT] Stat Exams 01/04/22 19:34 Completed - Procedures and Test Procedures and Tests throughout Hospitalization: Therapy Orders & Screens 01/05/22 01:12 Respiratory Therapy Assessment DAILY Comment: Diagnosis: inability to take fluids; esophagitis; 01/05/22 07:00 Respiratory MDI BID Comment: SYMBICORT BID Diagnosis: inability to take fluids; esophagitis; Discharge Exam General Appearance: no apparent distress, alert Neurologic Exam: alert, oriented x 3, cooperative, normal mood/affect, nml cerebellar function, sensation nml, No motor deficits Eye Exam: PERRL, EOMI, eyes nml inspection Ears, Nose, Throat Exam: normal ENT inspection, pharynx normal, moist mucous membranes Neck Exam: normal inspection, non-tender, supple, full range of motion Respiratory Exam: normal breath sounds, lungs clear, No respiratory distress Cardiovascular Exam: regular rate/rhythm, normal heart sounds Gastrointestinal/Abdomen Exam: soft, No tenderness, No mass Pelvic Exam: deferred Rectal Exam: deferred Back Exam: normal inspection, normal range of motion, No CVA tenderness, No vertebral tenderness Extremity Exam: normal inspection, normal range of motion Skin Exam: normal color, warm, dry Final Diagnosis/Problem List - Final Discharge Diagnosis/Problem (1) Pharyngoesophageal dysphagia Current Visit: Yes Status: Acute Code(s): R13.14 - DYSPHAGIA, PHARYNGOESOPHAGEAL PHASE - Discharge Discharge Date: 01/05/22 Disposition: Home, Self-Care Condition: Stable Prescriptions: New Famotidine 20 mg [Pepcid 20 MG] 20 mg PO BID #60 tablet PANTOPRAZOLE 40 mg Tablet [Protonix 40MG Tablet] 40 mg PO QAM 30 Days #30 tab Continue Enalapril Maleate 10 mg [Vasotec 10 MG] 20 mg PO DAILY Magnesium Oxide 400 mg [Mag-Ox 400] 400 mg PO HS Metformin HCl 1000 mg [Glucophage 1000 MG] 500 mg PO BID Diltiazem HCl [Diltiazem 24Hr ER] 120 mg PO DAILY Albuterol Sulfate [Proair Hfa] 8.5 gm IH Q6H PRN PRN PRN Reason: Shortness Of Breath Budesonide/Formoterol Fumarate [Symbicort 80-4.5 Mcg Inhaler] 10.2 gm IH BID Aspirin 81 mg PO HS Rosuvastatin Calcium 20 mg PO HS Instructions: Acid Reflux and GERD in Adults (DC) Follow up with: GREG CHRISTINA MD [Primary Care Provider] - Call for Appointment Forms: Discharge Instructions
[2022-01-05] MEDS ORDERED: Glucophage 500 MG PO SCH (17:00)
[2022-01-05] MEDS ORDERED: Cardizem CD 120 MG PO SCH (20:00)
[2022-01-05] MEDS ORDERED: NON-FORMULARY ITEM (Rosuvastatin Calcium [Rosuvastatin Calcium] 20 MG Tablet) PO SCH (22:00)
[2022-01-05] MEDS ORDERED: ECOTRIN 81 MG PO SCH (22:00)
[2022-01-05] MEDS ORDERED: MAG-OX 400 PO SCH (22:00)
[2022-01-05] MEDS ORDERED: ZOCOR 20MG PO SCH (22:00)
[2022-01-05] MEDS ORDERED: NON-FORMULARY ITEM (Aspirin [Aspirin] 81 MG Tablet) PO SCH (22:00)
[2022-01-05] MEDS ORDERED: NON-FORMULARY ITEM (Metformin Hcl 1000 Mg [Glucophage 1000 Mg] 1,000 MG Tablet) PO SCH (22:00)
[2022-01-06] MEDS ORDERED: DILTIAZEM HCL 120 MG PO SCH (10:00)
[2022-01-06] MEDS ORDERED: Vasotec 10 MG PO SCH (10:00)
== END 2022-01-05 14:15 | disposition home or self-care (01) ==
LOC: ED 17:01 → MED SURG 01-05 00:10
PROVIDERS: ADMIT General Practice; ATTEND Family Medicine
DX: R13.14 Dysphagia, pharyngoesophageal phase (principal); I10 Essential (primary) hypertension; E11.9 Type 2 diabetes mellitus without complications; Z79.899 Other long term (current) drug therapy; Z20.828 Contact with and (suspected) exposure to other viral communicable diseases; Z87.19 Personal history of other diseases of the digestive system
CPT/HCPCS: 36000; 36415; 71250; 80053; 81015; 82150; 83605; 83690; 84484; 85025; 87086; 87651; 93005; 94640; 94760; 96372; 96374; 96375; 99285; G0378; J1610; J2405; A9270-GY

== ENCOUNTER 2022-12-17 14:59 | Emergency (ER) | payer MEDICARE, BC ==
[2022-12-17 15:18] VITALS: BP 169/58; O2SAT 96
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
--- NOTE | 2022-12-17 15:28 | XRAY ---
Indication: Pain following fall one week ago. Comparison: None 3 view right knee demonstrates osteopenia and moderate medial subcutaneous venous varicosities. No other bony, articular, or soft tissue abnormalities.
[2022-12-17] MEDS ORDERED: TORAdol 30 mg Injection IM ONE (15:33)
[2022-12-17] MEDS ORDERED: TORAdol 30 mg Injection ONE (15:37)
[2022-12-17 15:48] VITALS: PULSE 92
== END 2022-12-17 15:57 | disposition home or self-care (01) ==
LOC: ED 14:59
DX: S83.91XA Sprain of unspecified site of right knee, initial encounter (principal); X50.0XXA Overexertion from strenuous movement or load, initial encounter; I10 Essential (primary) hypertension; E11.42 Type 2 diabetes mellitus with diabetic polyneuropathy; Z79.84 Long term (current) use of oral hypoglycemic drugs; Z79.899 Other long term (current) drug therapy; Z28.310 Unvaccinated for COVID-19
CPT/HCPCS: 73562; 96372; 99283; J1885

== ENCOUNTER 2023-06-08 09:51 | Day surgery (SDC) | payer MEDICARE, BC ==
--- NOTE | 2023-06-08 08:19 | HP ---
DATE OF SURGERY: 06/08/2023 HISTORY OF PRESENT ILLNESS: The patient is a 68-year-old female with some sharp abdominal pain and bulge. It was felt she had ventral hernia, has some incarcerated fat in the hernia lower epigastrium. PAST MEDICAL HISTORY: Asthma, gastroesophageal reflux disease, diabetes mellitus type II, hypertension, hyperlipidemia. PAST SURGICAL HISTORY: Tonsillectomy. Appendectomy. Cholecystectomy. Hysterectomy. Lumpectomy. Right knee surgery. EGD. Colonoscopy. Rectal surgery. MEDICATIONS: Rosuvastatin, omeprazole, diltiazem, metformin, meclizine, albuterol sulfate, enalapril, magnesium, Diclofenac, budesonide/formoterol. ALLERGIES: IODINE. BACTRIM CODEINE. SULFAMETHOXAZOLE. TRIMETHOPRIM. FAMILY HISTORY: Negative in regards to this problem. SOCIAL HISTORY: No smoking or alcohol abuse. REVIEW OF SYSTEMS: Fourteen systems reviewed. No chest pain or palpitations. Other systems negative or noncontributory as above and per preadmission questionnaire. PHYSICAL EXAMINATION: Height 5'3". BMI 34.5. GENERAL: No acute distress. HEENT: Sclerae nonicteric. EOMI. Oral mucous membranes moist. NECK: No JVD. CHEST: Equal excursion, nonlabored breathing. CVS: Regular rate and rhythm. ABDOMEN: Soft, small lower epigastrium area likely incarcerated fat in hernia. EXTREMITIES: No cyanosis or edema. NEURO: Alert, oriented, moving extremities symmetrically. PSYCH: Appropriate mood and affect. SKIN: Dry. IMPRESSION: Incarcerated ventral hernia. I recommend repair. Options discussed open versus laparoscopic repair. I recommend laparoscopic-assisted repair of incarcerated ventral hernia with mesh possible open. General risk of bleeding or infection, risk of hematoma or seroma formation, risk of trocar injury, bowel, bladder, blood vessel injury. Risk of mesh infection possibly requiring removal. Risk of aches, pains, burning, numbness possibly chronic in nature. Risk of scar formation or bowel obstruction. Risk of mesh fracture or failure possibly creating issues with viscera or other structures, ongoing morbidity/mortality, general risk of anesthesia, sedation, deep venous thrombosis, pulmonary embolism, pneumonia but not limited to. The patient accepts the above risks but not limited to and agrees to proceed with laparoscopic viscera repair of incarcerated ventral hernia with mesh possible open as an outpatient. Otherwise, continue medication for asthma, reflux, hypertension and diabetes. She agrees to the plan, will proceed as an outpatient laparoscopic-assisted repair incarcerated ventral hernia with mesh possible open. Otherwise, continue medication for hypertension, chronic obstructive pulmonary disease, heart disease, hyperlipidemia, hypothyroidism and for multiple other comorbidities. Will proceed as an outpatient EGD and colonoscopy under MAC anesthesia.
[~2023-06-08 09:51] MED LIST changes: -DIPRIVAN 200 MG/20 ML IV ONE; +Sensorcaine 0.25% 10 ML ONE
[2023-06-08] MEDS ORDERED: Lactated Ringers 1,000 ML IV ONE (10:05)
[2023-06-08] MEDS ORDERED: CEFAZOLIN 2 GM-D5W BAG** 2 GM/50 ML ML IV ONE (10:05)
[2023-06-08] MEDS ORDERED: Lactated Ringers 1,000 ML IV SCH (10:30)
[2023-06-08] MEDS ORDERED: CEFAZOLIN 2 GM-D5W BAG** 2 GM/50 ML ML IV SCH (10:30)
[2023-06-08] MEDS ORDERED: Transderm Scop 1.5MG Patch TOP PRN (12:13)
[2023-06-08] MEDS ORDERED: Pepcid 20 MG VIAL IV ONE (12:13)
[2023-06-08] MEDS ORDERED: SUBLIMAZE 100 MCG/2 ML ONE ×2 (13:02→15:12)
[2023-06-08] MEDS ORDERED: Xylocaine-Mpf 2% 5 Ml Vial ONE (13:02)
[2023-06-08] MEDS ORDERED: Decadron 4 MG INJ ONE ×2 (13:02→14:23)
[2023-06-08] MEDS ORDERED: Zemuron 100 MG/10 ML ONE (13:02)
[2023-06-08] MEDS ORDERED: Zofran 4 MG/2 ML VIAL ONE ×2 (13:02→15:12)
[2023-06-08] MEDS ORDERED: DIPRIVAN 200 MG/20 ML IV ONE (13:02)
[2023-06-08] MEDS ORDERED: TORAdol 30 mg Injection ONE (13:02)
[2023-06-08] MEDS ORDERED: BRIDION 200MG/2ML IV ONE (13:02)
[2023-06-08] MEDS ORDERED: DEXMEDETOMIDINE 80 MCG/20ML-NS IV ONE (14:23)
[2023-06-08] MEDS ORDERED: Naropin 0.5% 30 ML VIAL ONE (14:23)
[2023-06-08] MEDS ORDERED: Compazine 10 MG/2 ML ONE (15:31)
[2023-06-08 16:28] VITALS: RESP 16; TEMP 96.9
[2023-06-08 17:23] VITALS: PULSE 66
[2023-06-08 17:24] VITALS: BP 153/66; O2SAT 97
[2023-06-08 17:52] LABS: Appearance Clear (Clear); Bacteria None Seen /HPF (None Seen); Bilirubin Negative (Negative); Blood Negative (Negative); Epithelial Cells None Seen /HPF (None Seen); Glucose, Urine Negative (Negative); Hyaline Casts NONE SEEN /LPF (0-2); Ketones Negative (Negative); Leukocyte Esterase Negative (Negative); Nitrite Negative (Negative); Ph 7.5 (4.6-8.0); Protein,Urine Dip Negative (Negative); RBC 0-2 /HPF (0-5); Specific Gravity <=1.005 (1.005-1.030); Urobilinogen 0.2 mg/dL (0.2); WBC 0-2 /HPF (0-5)
--- NOTE | 2023-06-09 10:32 | OP ---
SURGERY DATE/TIME: 06/08/2023 1303 PREOPERATIVE DIAGNOSIS: Incarcerated ventral hernia. POSTOPERATIVE DIAGNOSIS: Incarcerated ventral hernia (four defects spanning approximately 4.5 cm) repaired with mesh. PROCEDURE: Laparoscopic-assisted repair of incarcerated ventral hernia (approximately 4.5 cm in size) repaired with mesh. SURGEON: Dr. Kiran Vale. PHOTO CHECKER AND ASSEMBLER: Bradley Lerma, Medical Student III. ANESTHESIA: General. ESTIMATED BLOOD LOSS: Minimal. INDICATIONS: As noted above. Risks and benefits explained in detail and not limited to and consent obtained. The site was confirmed with the patient in the preoperative holding area. DESCRIPTION OF PROCEDURE AND FINDINGS: The patient is taken to the operating room. General anesthesia induced. The patient prepped and draped in usual sterile fashion. After official time out and no disagreement with planned procedure, a transverse incision made in the left upper quadrant. Veress needle inserted. As the drop test was not as easy, it was elected to place Veress needle more close to the mid abdomen. Fascia elevated upwards. Veress needle easily inserted. Drop test of saline. Easily insufflated with opening pressure of 0 to 15 and CO2. Once this was accomplished a right mid abdomen 5 mm bladeless port and camera inserted without difficulty followed by left lower quadrant 5 mm port, left lateral and mid abdomen 5 mm port and left lower quadrant 5 mm port. There was no evidence of any injury secondary to Veress needle or port placement. The patient did have a little bit of distended stomach which anesthesia decompressed. At this point the patient noted to have ventral hernia, some incarcerated preperitoneal fat in deep peritoneal plane. Careful dissection carried down to the defect area. It was then evident that this actually had four different defects over a span of about approximately 4.5 cm. These were carefully reduced with incarcerated preperitoneal fat. Once this was accomplished it was felt that the area marked out to size [address] mesh, the most appropriate mesh to use in this fashion. It was marked on the abdominal wall. Four quadrants 0 Ethibond was placed in the mesh and placed a port through the largest of the defects after first fitting some interrupted #1 Vicryl to close the defect transfascially. Once this was accomplished, the port was placed. The mesh was wet. It was carefully dropped into the abdomen. The port was removed. The pressure turned down to 8. The transfascial tissues were closed with #1 Vicryl closing the larger defects, little small defects around the edges that it was felt the mesh would overlap. At this point the mesh was pulled up centering it over the defects, four quadrant 0 Ethibond were pulled up and tied transfascially through four stab wounds. The mesh is nice and flat. At this point the Capture Tacker tacked around the periphery. There was one tack that did not seem to lapse quite securely so another tack is placed. Otherwise a few SorbaFix tackers were placed more centrally and used for space. The mesh nice and flat in tension-free flat. The balloon had been removed intact and passed off. At this point careful inspection other than some minimal ooze in the omentum, dissected down and there is no evidence of any visceral issues or other issues secondary to dissection or Veress needle placement. At this point the mesh is nice and flat. Again, the pressure had been turned down 8 for transfixing the mesh. Pneumoperitoneum decompressed. The larger port that the mesh had been dropped through was closed with 3-0 Vicryl. Skin closed with 4-0 Vicryl interrupted fashion. 0.25% Marcaine local had been injected along the skin incision fascial defect. The patient tolerated the procedure well. Steri-Strips and sterile dressing applied. Anesthesia applied tap blocks. There were no immediate complications. Findings discussed with the family out in the waiting area.
== END 2023-06-08 17:15 | disposition home or self-care (01) ==
LOC: SDC 09:51
PROVIDERS: ATTEND Surgery
DX: K43.6 Other and unspecified ventral hernia with obstruction, without gangrene (principal); E11.9 Type 2 diabetes mellitus without complications; Z79.899 Other long term (current) drug therapy
CPT/HCPCS: 00752; 49594; 64488; 76937; 76942; 81001; 82947; 87086; C1781; J0690; J1100; J1885; J2405; J2704; J2795; J3010; L0625; A9270-GY

== ENCOUNTER 2024-02-01 08:31 | Emergency (ER) | payer MEDICARE, BC ==
[2024-02-01 08:50] VITALS: TEMP 98.9
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
[2024-02-01] MEDS ORDERED: BABY ASPIRIN 81 MG CHEW ONE (09:13)
[2024-02-01] MEDS ORDERED: Protonix 40MG Tablet ONE (09:13)
[2024-02-01] MEDS ORDERED: XYLOCAINE VISCOUS 2% 15 ML CUP ONE (09:13)
[2024-02-01] MEDS ORDERED: MAALOX ES 30 ML UNIT DOSE ONE (09:13)
[2024-02-01] MEDS: BABY ASPIRIN 81 MG CHEW PO ONE (09:17)
[2024-02-01] MEDS: PROTONIX 40 MG IV IV ONE (09:18)
[2024-02-01] MEDS: GI COCKTAIL 45 ML (Maalox/Lidocaine) PO ONE (09:21)
[2024-02-01 09:37] LABS: Absolute Neutrophil Ct (ANC) 3.78 x10^3/uL (1.4-6.9); BASOPHIL % 1.1 % (0.0-0.4); Basophil (Absolute #) 0.07 x10^3/uL (0-0.4); Eosinophil % 1.5 % (0.00-5.0); Hematocrit 41.7 % (35-47); Hemoglobin 13.9 g/dL (12.0-16.0); IMMATURE GRAN # 0.02 x10^3u/L (0.00-0.03); IMMATURE GRAN % 0.3 % (0.00-0.4); Lymphocyte (Absolute #) 2.21 x10^3/uL (1.0-4.6); Lymphocytes % 33.2 % (24.0-44.0); Mean Cell Volume 90.5 fL (78-100); Mean Corpuscular Hemoglobin 30.2 pg (26-32); Mean Corpuscular Hgb Concent. 33.3 g/dL (32-36); Mean Platelet Volume 9.3 fL (7.5-11.0); Monocyte (Absolute #) 0.47 x10^3/uL (0.0-1.3); Monocytes % 7.1 % (0.0-12.0); Neutrophil % 56.8 % (36.0-66.0); Platelet Count 313 x10^3/uL (150-450); Red Blood Count 4.61 x10^6/uL (4.1-5.4); Red Cell Distribution Width 14.9 % (11.5-14.0); White Blood Count 6.7 x10^3/uL (4.0-10.5)
[2024-02-01 09:52] LABS: ALBUMIN 4.2 g/dL (3.5-5.0); ANION GAP 11.3 MEQ/L (5-15); BILIRUBIN,TOTAL 0.4 mg/dL (0.2-1.3); Calcium 9.9 mg/dL (8.4-10.2); Creatinine 1 0.8 mg/dL (0.52-1.04); EST GLOMERULAR FILTRATION RATE 80.7 ML/MIN; Potassium 4.8 mmol/L (3.5-5.1)
[2024-02-01 11:06] VITALS: PULSE 72; RESP 18
[2024-02-01 11:07] VITALS: BP 150/80
--- NOTE | 2024-02-01 19:34 | XRAY ---
Indication: Chest pain. Comparison: October 24, 2019 Portable chest again demonstrates lingula subsegmental atelectasis/scarring. Remaining lungs clear. Heart not enlarged again with subcarinal calcified node. Bony thorax intact again with minimal degenerative changes. Impression: Continued nonacute chest with chronic features.
[2024-02-01 23:20] VITALS: O2SAT 99
== END 2024-02-01 11:12 | disposition home or self-care (01) ==
LOC: ED 08:31
DX: K21.00 Gastro-esophageal reflux disease with esophagitis, without bleeding (principal); R07.89 Other chest pain; I10 Essential (primary) hypertension; E78.5 Hyperlipidemia, unspecified; E11.42 Type 2 diabetes mellitus with diabetic polyneuropathy; Z79.85 Long-term (current) use of injectable non-insulin antidiabetic drugs; Z79.899 Other long term (current) drug therapy
CPT/HCPCS: 36415; 71045; 80053; 83880; 84484; 85025; 93005; 93041; 94760; 99284; A9270-GY

== ENCOUNTER 2025-07-15 10:35 | Emergency (ER) | payer MEDICARE, BC ==
[2025-07-15 11:00] VITALS: PULSE 70; RESP 16; TEMP 98.2; O2SAT 97
--- NOTE | 2025-07-15 11:23 | ERPHSYRPT ---
- History of Present Illness Patient Subjective Stated Complaint: pt here for pain to right eye with redness to eye, she stastes last time she had bleeding in eye, she states pain started last night and noticed redness today,. Triage Nursing Assessment: pt alert, walked in, resp easy, skin w/d/p. no cough, has redness to eye,no drainage Physician History: Right eye red, patient had noticed this morning that her right eye was red, she does not recall having any kind of injury, she had some irritation around the periorbital soft tissues, she denied any visual changes, she denied any loss of vision, she has a history of a previous small retinal tear which did not require any intervention in 2023, she was concerned that this may have reoccurred, she had floaters when she had her previous retinal tear, she has no symptoms of floaters or loss of vision today Timing/Duration: today Location: right eye Severity: mild Apparent Injury: no Visual Assistive Devices: None Allergies/Adverse Reactions: iodine Allergy (Verified 07/15/25 10:50) Hives sulfamethoxazole [From Bactrim] Allergy (Verified 07/15/25 10:50) Rash trimethoprim [From Bactrim] Allergy (Verified 07/15/25 10:50) Rash codeine Adverse Reaction (Mild, Verified 07/15/25 10:50) Nausea Home Medications: Enalapril Maleate 10 mg [Vasotec 10 MG] 20 mg PO DAILY 10/30/15 [History] Magnesium Oxide 400 mg [Mag-Ox 400] 400 mg PO HS 10/30/15 [History] dilTIAZem HCL [Diltiazem 24Hr ER] 120 mg PO DAILY 10/30/15 [History] Albuterol Sulfate [Proair Hfa] 8.5 gm IH Q6H PRN PRN 11/01/15 [History] Budesonide/Formoterol Fumarate [Symbicort 80-4.5 Mcg Inhaler] 10.2 gm IH BID 11/01/15 [History] Rosuvastatin Calcium 20 mg PO HS 01/05/22 [History] Omeprazole 40 mg PO DAILY 06/01/23 [History] Tirzepatide [Mounjaro] 2.5 mg SQ WEEKLY 02/01/24 [History] Hx Tetanus, Diphtheria Vaccination/Date Given: Yes Hx Influenza Vaccination/Date Given: Yes Hx Pneumococcal Vaccination/Date Given: Yes Immunizations Up to Date: Yes Travel Risk - International Travel Have you traveled outside of the country in past 3 weeks: No - Emerging Infectious Disease Are you exhibiting symptoms associated with any current EIDs: No - Past Medical History Pertinent Past Medical History: Yes Neurological History: Migraines ENT History: No Pertinent History Cardiac History: High Cholesterol, Hypertension Respiratory History: Asthma Endocrine Medical History: Diabetes Type II Musculoskeletal History: Arthritis GI Medical History: GERD, Gallbladder Disease History: No Pertinent History Psycho-Social History: No Pertinent History Female Reproductive Disorders: Fibroids Other Medical History: HYSTERECTOMY, HEART PALPITATIONS AT TIMES, R KNEE ARTHROSCOPE SX, BLADDER MESH, HERNIA SX WITH ABDOMINAL MESH, T&A - Past Surgical History Past Surgical History: Yes Neuro Surgical History: No Pertinent History Cardiac: No Pertinent History Respiratory: No Pertinent History Gastrointestinal: Appendectomy, Cholecystectomy, Rectal Surgery Genitourinary: No Pertinent History Musculoskeletal: Orthopedic Surgery Female Surgical History: Hysterectomy, Lumpectomy, Other Other Surgical History: TONSILS,. right knee - Social History Smoking Status: Never smoker Exposure to second hand smoke: No Drug Use: none - Social Determinants of Health Will the patient participate in the screening: Yes Do you worry about a steady place to live?: No Do you have any problems with any of the following?: No known problems In the past 12 months,have you had to go without utilities?: No Transportation Issues: No Has anyone in your support network made you feel unsafe?: No Have you or anyone in your house had to go w/o enough food: No - Nursing Vital Signs Nursing Vital Signs: Initial Vital Signs Temperature 98.2 F 07/15/25 10:59 Pulse Rate 70 07/15/25 10:59 Respiratory Rate 16 07/15/25 10:59 Blood Pressure 147/74 07/15/25 10:59 O2 Sat by Pulse Oximetry 97 07/15/25 10:59 Pain Scale Pain Intensity 4 - Physical Exam General Appearance: no apparent distress, alert Eye Exam: right eye: conjunctival hemorrhage (Medial aspect), bilateral eye: PERRL, EOMI Ears, Nose, Throat Exam: normal ENT inspection, TMs normal, pharynx normal, moist mucous membranes Neck Exam: normal inspection, non-tender, supple Neurologic: alert, oriented x 3, cooperative, special assemblies supervisor II-XII nml as tested, normal mood/affect, nml cerebellar function, nml station & gait Skin Exam: normal color, warm, dry SpO2 Interpretation: normal SpO2: 97 - Progress Progress Note: 07/15/25 11:20 Discussed subconjunctival hemorrhage, funduscopy had revealed no hemorrhage, no floaters, palpation to the orbits was normal - Departure Departure Disposition: Home Clinical Impression: Subconjunctival hemorrhage of right eye Condition: Stable Critical Care Time: No Referrals: BIN SERVIN MD [CONSULTING PHYSICIAN, OPHTHALMOLOGY] - Follow up/PCP as directed Instructions: Subconjunctival Hemorrhage Additional Instructions: call your eye doctor on thursday, if you do not have one call Dorita Burkett Ophthomology for follow up
[2025-07-15 11:47] VITALS: BP 145/82
== END 2025-07-15 11:51 | disposition home or self-care (01) ==
LOC: ED 10:35
DX: H11.31 Conjunctival hemorrhage, right eye (principal); I10 Essential (primary) hypertension; E11.9 Type 2 diabetes mellitus without complications; Z79.85 Long-term (current) use of injectable non-insulin antidiabetic drugs; Z79.899 Other long term (current) drug therapy